=== PATIENT | male | born 1970 | race Caucasian/White ===

== ENCOUNTER 2017-12-15 10:16 | Outpatient (CLI) | payer BC ==
--- NOTE | 2017-12-17 14:20 | Diagnostic Imaging Report ---
Indications: Dysphagia Technique: Patient ingested multiple substances under the supervision of speech pathology. Video fluoroscopic recording performed. Total fluoroscopy time 167 seconds. Total dose area product 0.12816 mGycm2 Comparison: none Findings: Small anterior osteophytes are seen at C4-5, do not significantly impinge upon the esophagus. No aspiration or penetration demonstrated. Relatively prompt deglutition. Occasionally early pooling of nectar thick liquid barium. Good clearing of contrast bolus.. Impression: Negative for evidence of aspiration. Findings as noted Please refer to speech pathology report for more detailed analysis
== END 2017-12-15 12:16 | disposition home or self-care (01) ==
LOC: RAD 10:16
DX: R13.10 Dysphagia, unspecified (principal)
CPT/HCPCS: 74230